=== PATIENT | male | born 1995 | race Caucasian/White ===

== ENCOUNTER 2021-12-16 11:32 | Emergency (ER) | payer MEDICAID, OTHER ==
[~2021-12-16] VITALS: Ht 175 cm; Wt 77.0 kg
[2021-12-16 11:35] VITALS: BP 140/87
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
[2021-12-16 11:56] LABS: BASOPHILS % (AUTO) 0 % (0-10); EOSINOPHILS % (AUTO) 0 % (0-10); HEMATOCRIT 39 % (40-54); HEMOGLOBIN 13.5 g/dL (13.3-17.7); LYMPHOCYTES # (AUTO) 1.1 10^3/uL (1.0-4.0); LYMPHOCYTES % (AUTO) 10 % (12-44); MEAN CORPUSCULAR HEMOGLOBIN 29 pg (25-34); MEAN CORPUSCULAR HGB CONC 35 g/dL (32-36); MEAN CORPUSCULAR VOLUME 84 fL (80-99); MEAN PLATELET VOLUME 9.4 fL (9.0-12.2); MONOCYTES # (AUTO) 0.8 10^3/uL (0.0-1.0); MONOCYTES % (AUTO) 8 % (0-12); NEUTROPHILS # (AUTO) 8.7 10^3/uL (1.8-7.8); NEUTROPHILS % (AUTO) 81 % (42-75); PLATELET COUNT 260 10^3/uL (130-400); WHITE BLOOD COUNT 10.8 10^3/uL (4.3-11.0)
[2021-12-16 12:02] LABS: CHLORIDE 95 MMOL/L (98-107); POTASSIUM 3.7 MMOL/L (3.6-5.0); SODIUM 135 MMOL/L (135-145)
[2021-12-16 12:03] LABS: ALBUMIN 4.5 GM/DL (3.2-4.5)
[2021-12-16 12:04] LABS: CALCIUM 9.7 MG/DL (8.5-10.1)
[2021-12-16 12:05] LABS: GLUCOSE 186 MG/DL (70-105); TOTAL PROTEIN 7.3 GM/DL (6.4-8.2)
[2021-12-16 12:06] LABS: CARBON DIOXIDE 21 MMOL/L (21-32)
[2021-12-16 12:07] LABS: BILIRUBIN,TOTAL 1.2 MG/DL (0.1-1.0)
[2021-12-16 12:09] LABS: ALKALINE PHOSPHATASE 92 U/L (40-136); CREATININE SERUM 0.74 MG/DL (0.60-1.30); GFR ESTIMATED 129
[2021-12-16 12:10] LABS: BUN/CREATININE RATIO 20
[2021-12-16 12:12] LABS: ALANINE AMINOTRANSFERASE 32 U/L (0-55); SALICYLATE < 5.0 MG/DL (5.0-20.0)
[2021-12-16 12:48] LABS: ACETAMINOPHEN < 10 UG/ML (10-30)
[2021-12-16 12:59] LABS: CLARITY,URINE CLEAR; COLOR,URINE YELLOW; GLUCOSE, URINE (UA) 2+ (NEGATIVE); KETONES,URINE 3+ (NEGATIVE); LEUKOCYTE ESTERASE ,URINE NEGATIVE (NEGATIVE); NITRITE,URINE NEGATIVE (NEGATIVE); PH,URINE 5.5 (5-9); PROTEIN,URINE TRACE (NEGATIVE)
[2021-12-16] MEDS ORDERED: OLANZapine 5 MG (ZyPREXA) TAB PO ONE (13:00)
[2021-12-16 13:09] LABS: BACTERIA,URINE NEGATIVE /HPF; BILIRUBIN,URINE 1+ (NEGATIVE)
[2021-12-16 13:12] LABS: AMPHETAMINE SCREEN, URINE POSITIVE (NEGATIVE); BARBITURATE SCREEN URINE NEGATIVE (NEGATIVE); BENZODIAZEPINES SCREEN URINE NEGATIVE (NEGATIVE); CANNABINOID SCREEN, URINE POSITIVE (NEGATIVE); COCAINE SCREEN URINE NEGATIVE (NEGATIVE); METHADONE STAT NEGATIVE (NEGATIVE); OPIATE SCREEN URINE NEGATIVE (NEGATIVE); OXYCODONE STAT NEGATIVE (NEGATIVE); PROPOXYPHENE STAT NEGATIVE (NEGATIVE); TRICYCLIC ANTIDEPRESSANTS SCRE NEGATIVE (NEGATIVE)
[2021-12-16] MEDS ORDERED: OLANZapine 5 MG ODT (ZyPREXA ZYDIS) PO ONE ×2 (13:15→19:00)
[2021-12-16] MEDS ORDERED: LORazepam 0.5 MG (ATIVAN) TABLET PO STA (14:31)
[2021-12-16] MEDS ORDERED: NICOTINE 21 MG (NICODERM) PATCH TD ONE (18:15)
[2021-12-16] MEDS ORDERED: LORazepam 0.5 MG (ATIVAN) TABLET ONE (18:53)
== END 2021-12-17 10:38 | disposition left against medical advice (07) ==
LOC: ER 11:33
DX: R44.1 Visual hallucinations (principal); R44.0 Auditory hallucinations; F15.10 Other stimulant abuse, uncomplicated; F12.10 Cannabis abuse, uncomplicated; F41.9 Anxiety disorder, unspecified; Z79.899 Other long term (current) drug therapy; Z20.822 Contact with and (suspected) exposure to COVID-19
CPT/HCPCS: 80053; 80306; 81000; 85025; 87636; 93005; 99283; G0480 ×3; 36415; 80320; 80329

== ENCOUNTER 2021-12-17 11:21 | Emergency (ER) | payer MEDICAID | END 2021-12-17 11:25 | disposition left against medical advice (07) | LOC: EDUNIT# 11:21 → ER 11:23 | DX: Z00.8 Encounter for other general examination (principal) ==

== ENCOUNTER 2021-12-17 14:07 | Emergency (ER) | payer MEDICAID ==
[~2021-12-17] VITALS: Ht 175 cm; Wt 80.0 kg
[2021-12-17 14:20] VITALS: BP 142/96
--- NOTE | 2021-12-17 14:44 | ED Psychosocial ---
General Chief Complaint: Psych/Social Disorder Stated Complaint: PSYCH Source: patient Exam Limitations: other (Hearing impaired ) History of Present Illness Date Seen by Provider: December 17, 2021 Time Seen by Provider: 14:37 Allergies and Home Medications Allergies Coded Allergies: No Known Drug Allergies (Unverified , 12/16/21) Patient Home Medication List Home Medication List Reviewed: Yes Physical Exam Capillary Refill : Height, Weight, BMI Height: '" Weight: lbs. oz. kg; 25.00 BMI Method: Departure Impression Primary Impression: Methamphetamine abuse Additional Impression: Visual hallucinations Disposition: 01 HOME, SELF-CARE Condition: Stable/Unchanged Departure-Patient Inst. Decision time for Depature: 14:43 Referrals: NO,LOCAL PHYSICIAN (PCP/Family) Primary Care Physician Patient Instructions: Drug Abuse and Drug Addiction (DC) Add. Discharge Instructions: Plan: 1. Follow up with [facility] tomorrow at 1140. You will go to [address] [place] [address] for follow up. 2. Call this number to schedule free transportation to your appointment: To schedule a ride with one of those services call [phone]. 3. Stop using methamphetamine. 4. Return for any new, concerning, or worsening symptoms. 5. To discuss obtaining food stamps you will need to contact this number [address] [place] [address] [phone]. 6. Return for any new, concerning, or worsening symptoms. All discharge instructions reviewed with patient and/or family. Voiced understanding. CALIXTO MILAN APRN December 17, 2021 14:44
[2021-12-17] MEDS ORDERED: LORazepam 0.5 MG (ATIVAN) TABLET PO ONE (15:00)
== END 2021-12-17 15:08 | disposition home or self-care (01) ==
LOC: EDUNIT# 14:07 → ER 14:08
DX: R44.1 Visual hallucinations (principal); F15.10 Other stimulant abuse, uncomplicated
CPT/HCPCS: 99283